=== PATIENT | male | born 1960 | race Caucasian/White ===

== ENCOUNTER 2022-09-22 15:43 | Emergency (ER) | payer BC, MEDICAID ==
[2022-09-22] MEDS ORDERED: Lidocaine 1% 5 ML VIAL INJECT ONE (19:08)
[2022-09-22] MEDS ORDERED: Bacitracin Oint 1 GM U/D Packet TOP ONE (19:08)
[2022-09-22] MEDS ORDERED: Diphtheria,Pertussis(Acell),Tetanus Vaccine 0.5 ML Syringe IM ONE (19:24)
== END 2022-09-22 19:59 | disposition home or self-care (01) ==
LOC: JP.ED 15:43
DX: S61.411A Laceration without foreign body of right hand, initial encounter (principal); Z23 Encounter for immunization; Z79.899 Other long term (current) drug therapy; Z79.01 Long term (current) use of anticoagulants; Z88.8 Allergy status to other drugs, medicaments and biological substances; W26.8XXA Contact with other sharp object(s), not elsewhere classified, initial encounter
CPT/HCPCS: 12001; 90471; 90715; 99282-25